=== PATIENT | female | born 1995 | race Caucasian/White ===

== ENCOUNTER 2016-08-17 01:53 | Emergency (ER) | payer SELFPAY ==
[~2016-08-17] VITALS: Ht 188 cm; Wt 70.0 kg
[2016-08-17 01:55] VITALS: BP 129/87
[2016-08-17] MEDS ORDERED: ALPR1TAB2 PO (02:41)
== END 2016-08-17 03:44 | disposition home or self-care (01) ==
LOC: ED 03:07
DX: R00.2 Palpitations (principal); F41.1 Generalized anxiety disorder
CPT/HCPCS: 93005; 99283

== ENCOUNTER 2016-10-19 14:44 | Emergency (ER) | payer BC ==
[~2016-10-19] VITALS: Ht 182.9 cm; Wt 69.3 kg
[~2016-10-19 14:44] MED LIST: ALPR1TAB2 PO
[2016-10-19 14:49] VITALS: BP 128/80
== END 2016-10-19 16:17 | disposition home or self-care (01) ==
LOC: ED 16:15
DX: H92.02 Otalgia, left ear (principal); M94.8X8 Other specified disorders of cartilage, other site
CPT/HCPCS: 99283

== ENCOUNTER 2016-12-31 22:01 | Emergency (ER) | payer BC ==
[~2016-12-31] VITALS: Ht 182.9 cm; Wt 73.0 kg
[2016-12-31 22:08] VITALS: BP 133/83
== END 2016-12-31 23:09 | disposition left against medical advice (07) ==
LOC: ED 23:03
DX: R06.02 Shortness of breath (principal)
CPT/HCPCS: 93005; 99281

== ENCOUNTER 2018-07-03 01:34 | Inpatient (IN) | payer BC, OTHER ==
[~2018-07-03] VITALS: Ht 172.7 cm; Wt 74.9 kg
--- NOTE | 2018-07-03 01:57 | NUR ---
STARR BARLOW ON A LEGAL HOLD FOR REPORTED SA BY TAKING 10 0.5 MG XANAX AND AN UNKNOWN AMOUT OF [place] TONIGHT. HX OF SA IN THE PAST. PT. RESPONSIVE TO PAINFUL STIMULI ONLY AT THIS TIME. EKG COMPLETED ON ARRIVAL; DR. BAE IN TO EVAL PT. PLACED ON CONTINUOUS PULSE OX, B/P, AND HEART MONITORS. SITTER IN [place] FOR SAFETY . ALL SAFETY MEASURES OBSERVED.
--- NOTE | 2018-07-03 02:16 | NUR ---
PT. FRIEND HEMANT ARRIVED AT BS. PT. PROCEDED TO WRAP B/P CORD AROUND HER NECK AND STATE THAT SHE WAS TRYING TO KILL HERSELF. SITTER REMAINS IN DIRECT VIEW OF PT. PT. NECKLACE REMOVED AND PLACED IN BELONGINGS BAG ( OF ) IN LOCKER. DR. BAE AWARE OF THIS. ROOM PARTIALLY SECURED BUT PT. NEEDS TO REMAIN ON MONITORS AT THIS TIME.
--- NOTE | 2018-07-03 02:52 | NUR ---
PT. VERY TEARFUL AND HAVING CONVERSATION WITH FRIEND AT BS. VS UPDATED. PT. A&O X 4 AT THIS TIME. NSR ON MONITOR. SITTER REMIANS IN DIRECT VIEW OF PT.
[2018-07-03 03:04] LABS: BASOPHILS # (AUTO) 0.04 x10^3/uL (0-0.1); BASOPHILS % (AUTO) 0 % (0-1); EOSINOPHILS % (AUTO) 1 % (1-7); LYMPHOCYTES # (AUTO) 3.16 x10^3/uL (1-3.4); LYMPHOCYTES % (AUTO) 32 % (22-44); MD NO; MEAN CORPUSCULAR HEMOGLOBIN 31.1 pg (27.0-34.8); MEAN CORPUSCULAR HGB CONC 34.5 g/dL (32.4-35.8); MEAN CORPUSCULAR VOLUME 90.2 fL (80-100); MEAN PLATELET VOLUME 7.6 fL (7.4-10.4); MONOCYTES # (AUTO) 0.49 x10^3/uL (0.2-0.8); MONOCYTES % (AUTO) 5 % (2-9); NEUTROPHILS # (AUTO) 6.03 x10^3/uL (1.8-6.8); NEUTROPHILS % (AUTO) 61 % (42-75); PLATELET COUNT 472 x10^3/uL (130-400); RED BLOOD COUNT 5.03 x10^6/uL (3.82-5.3); RED CELL DISTRIBUTION WIDTH 13.4 % (9.6-15.2)
[2018-07-03 03:11] LABS: ALBUMIN 4.2 g/dL (3.4-5.0); ANION GAP 7 mmol/L (5-15); CALCIUM 8.1 mg/dL (8.5-10.1); CHLORIDE 112 mmol/L (98-107)
[2018-07-03 03:14] LABS: SALICYLATE LEVEL < 1.7 mg/dL (2.8-20.0)
[2018-07-03 03:17] LABS: ALANINE AMINOTRANSFERASE 48 U/L (12-78); ALKALINE PHOSPHATASE 40 U/L (45-117); BILIRUBIN,TOTAL 0.7 mg/dL (0.2-1.0); CREATININE 0.82 mg/dL (0.55-1.02); TOTAL PROTEIN 7.8 g/dL (6.4-8.2)
[2018-07-03 03:26] LABS: ACETAMINOPHEN < 2 mcg/mL (10-30)
--- NOTE | 2018-07-03 03:43 | NUR ---
PT. FRIEND LEAVING BS AT THIS TIME. CONTINUOUS PULSE OX AND HEART MONITORS IN PLACE. PT. LEFT LATERL POSITION WRAPPED IN BLANKETS. VSS.
--- NOTE | 2018-07-03 03:47 | NUR ---
SKYLAR FRIEND. SKYLAR HAS PT. PHONE.
--- NOTE | 2018-07-03 04:22 | NUR ---
REPORT TO CHANTAL HUGO. FLOOR READY FOR PT. TRANSPORT.
--- NOTE | 2018-07-03 05:04 | NUR ---
3 BRACLETS CUT OFF PT. WRIST THEY WERE TOO TIGHT TO REMOVE OVER HAND; PT. OK WITH THIS. IN BELONGINGS BAG 2 BIOHARD BAGS PLACED CONTAINING JEWLERY BAG 1: 1 NECKLACE, 1 WHITE WATCH, 3 WHITE BRACELETS, 1 COPPER BRACELT, 2 RINGS, AND THE 3 CUT OFF BRACELTS WITH BEADS. BAG 2: 2 WHITE ROUND EARING, 2 DARK ROUND EARINGS, 1 CLEAR STONE EARING, 1 LARGER WHITE/COPPER EARING. 1 BOTTLE OF XANAX WITH 1 PILL LEFT IN IT SENT UP WITH PT. THIS RN ATTEMPTED TO TAKE MED TO PHARMACY TO BE LOCKED UP; OLEGARIO FRIEDMAN FROM PHARMACY ADMITTING FLOOR NURSE FROM PHARMACY NEEDS TO SIGN PAPERS WITH THE PHARMACIST TO KEEP IN PT. CHART SO PT. CAN GET MED RETURNED AT D/C; CHANTAL HUGO ON FLOOR UPDATED ON THIS AND AWARE.
--- NOTE | 2018-07-03 05:13 | NUR ---
CECY AT TO [facility].
[2018-07-03] MEDS: LACTATED RINGERS 1,000 ML IV SCH ×3 (06:37→21:36)
[2018-07-03] MEDS: ENOXAPARIN 40 MG/0.4 ML SQ SCH (06:37)
[2018-07-03 06:38] VITALS: BP 100/61
[2018-07-03 11:34] VITALS: BP 104/69
[2018-07-03] MEDS ORDERED: AMPH30TA2 PO (11:58)
[2018-07-03] MEDS ORDERED: ALPR0.5T5 PO (11:58)
[2018-07-03] MEDS ORDERED: SERT100T PO (11:58)
[2018-07-03] MEDS ORDERED: ACETAMINOPHEN 325 MG TABLET PO PRN (12:30)
[2018-07-03 13:18] LABS: AMPHETAMINE SCREEN, URINE Negative (Negative); BARBITURATE SCREEN, URINE Negative (Negative); BENZODIAZEPINE SCREEN, URINE Positive (Negative); CANNABINOID SCREEN, URINE Negative (Negative); COCAINE SCREEN, URINE Negative (Negative); METHADONE SCREEN, URINE Negative (Negative); OPIATE SCREEN, URINE Negative (Negative)
[2018-07-03 14:25] VITALS: BP 110/69
[2018-07-03 21:01] VITALS: BP 113/72
[2018-07-04 01:13] VITALS: BP 105/64
[2018-07-04] MEDS: ENOXAPARIN 40 MG/0.4 ML SQ SCH (05:33)
[2018-07-04] MEDS: LACTATED RINGERS 1,000 ML IV SCH ×3 (05:33→21:08)
[2018-07-04 06:05] LABS: BASOPHILS # (AUTO) 0.04 x10^3/uL (0-0.1); BASOPHILS % (AUTO) 1 % (0-1); EOSINOPHILS % (AUTO) 3 % (1-7); LYMPHOCYTES # (AUTO) 2.24 x10^3/uL (1-3.4); LYMPHOCYTES % (AUTO) 38 % (22-44); MD NO; MEAN CORPUSCULAR HEMOGLOBIN 30.9 pg (27.0-34.8); MEAN CORPUSCULAR HGB CONC 33.9 g/dL (32.4-35.8); MEAN CORPUSCULAR VOLUME 91.2 fL (80-100); MEAN PLATELET VOLUME 7.6 fL (7.4-10.4); MONOCYTES # (AUTO) 0.35 x10^3/uL (0.2-0.8); MONOCYTES % (AUTO) 6 % (2-9); NEUTROPHILS # (AUTO) 3.02 x10^3/uL (1.8-6.8); NEUTROPHILS % (AUTO) 52 % (42-75); PLATELET COUNT 312 x10^3/uL (130-400); RED BLOOD COUNT 4.35 x10^6/uL (3.82-5.3); RED CELL DISTRIBUTION WIDTH 13.2 % (9.6-15.2)
[2018-07-04 06:11] LABS: ANION GAP 5 mmol/L (5-15); CHLORIDE 108 mmol/L (98-107)
[2018-07-04 06:12] LABS: CALCIUM 8.4 mg/dL (8.5-10.1); CREATININE 0.79 mg/dL (0.55-1.02)
[2018-07-04 08:19] VITALS: BP 115/60
[2018-07-04 14:49] VITALS: BP 108/69
[2018-07-04 19:20] VITALS: BP 107/67
[2018-07-05 02:27] VITALS: BP 112/66
[2018-07-05] MEDS: ENOXAPARIN 40 MG/0.4 ML SQ SCH (05:20)
[2018-07-05] MEDS: LACTATED RINGERS 1,000 ML IV SCH ×2 (05:20→13:29)
[2018-07-05 07:31] VITALS: BP 107/69
[2018-07-05 12:56] VITALS: BP 120/72
[2018-07-05 19:13] VITALS: BP 124/77
== END 2018-07-05 20:12 | DRG 917 ==
LOC: EDBD → MERGE 01:34 → ED 03:09 → EDIP 03:55 → 4EST 05:40 → UNDODISIN 07-05 18:03
PROVIDERS: ADMIT Family Medicine; ATTEND Family Medicine
DX: T42.4X2A Poisoning by benzodiazepines, intentional self-harm, initial encounter (principal); G92 Toxic encephalopathy; T51.92XA Toxic effect of unspecified alcohol, intentional self-harm, initial encounter; Y92.89 Other specified places as the place of occurrence of the external cause; F10.129 Alcohol abuse with intoxication, unspecified; F32.9 Major depressive disorder, single episode, unspecified; F90.9 Attention-deficit hyperactivity disorder, unspecified type; Z91.5 Personal history of self-harm
CPT/HCPCS: 36415; 80048; 80053; 80307; 80329; 83735; 84100; 84703; 85025; 93005; 96372; 99285; G0378; J1650; G0480; J7120

== ENCOUNTER 2018-07-28 07:04 | Emergency (ER) | payer BC ==
[~2018-07-28] VITALS: Ht 182.9 cm; Wt 77.0 kg
[~2018-07-28 07:04] MED LIST changes: +ALPR0.5T5 PO; +AMPH30TA2 PO; +SERT100T PO
--- NOTE | 2018-07-28 07:14 | NUR ---
PATIENT ARRIVES TO THE ER WITH COMPLAINTS OF POSSIBLE UTI. REQUESTED PATIENT TO GET A URINE SAMPLE. URINE IS SMALL AMOUNT AND CLOUDY, DARK, REDDISH MAROON BLOOD COLORED URINE. SENT TO LAB FOR TESTS, LABELED IN PRESENCE OF PATIENT. THIS BEGAN LAST NIGHT AT 11 PM. SHE HAS NO HISTORY OF THIS. SHE HAD NO RECENT HX OF TRAUMA OR ANY CHANGE IN DIET.
[2018-07-28 07:51] LABS: MICROSCOPIC INDICATED
[2018-07-28 07:52] LABS: CULTURE INDICATED? YES
--- NOTE | 2018-07-28 08:03 | NUR ---
PATIETN AWAITING ED WORKUP. IN BED, CALM.
[2018-07-28 08:36] VITALS: BP 118/78
--- NOTE | 2018-07-28 08:37 | NUR ---
PATIENT DISCHARGE TEACHING REVIEWED, SHOWS UNDERSTANDING. PATIENT RX GIVENAND INSTRUCTIONS REVIEWED. PATIENT LEFT WITH FULL UNDERSTANDING.
[2018-07-28 10:01] LABS: HCG UR SG 1.025 (1.003-1.030)
== END 2018-07-28 08:39 | disposition home or self-care (01) ==
LOC: ED 07:32
DX: N30.01 Acute cystitis with hematuria (principal); F32.9 Major depressive disorder, single episode, unspecified; F90.9 Attention-deficit hyperactivity disorder, unspecified type
CPT/HCPCS: 81001; 81025; 87077; 87086; 87186; 99283